=== PATIENT | female | born 1980 | race Caucasian/White ===

== ENCOUNTER 2017-05-13 23:13 | Inpatient (IN) | payer BC, OTHER ==
[~2017-05-13] VITALS: Ht 160 cm; Wt 105.0 kg
[~2017-05-13 23:13] MED LIST: PRENTAB26 PO
[2017-05-13] MEDS ORDERED: LACTATED RINGER'S 1000ML 1,000 ML IV SCH (23:31)
[2017-05-13] MEDS ORDERED: PENICILLIN G POTASSIUM IV 6 MU in DEXTROSE 5% 250ML 250 ML IV ONE (23:45)
[2017-05-13] MEDS ORDERED: PENICILLIN G POTASSIUM IV 3 MU in DEXTROSE 5% 100ML 100 ML IV PRN (23:45)
[2017-05-13] MEDS ORDERED: EpHEDrine SULFATE INJ 50 MG/ML AMP ONE (23:52)
[2017-05-13] MEDS ORDERED: FENTANYL 2MCG/ML ROPIV 1.25MG/ML 100ML BAG EPI ONE (23:52)
[2017-05-13] MEDS ORDERED: BUPIVACAINE 0.25% 30 ML VIAL ONE (23:52)
[2017-05-13] MEDS ORDERED: FENTANYL CITRATE INJ 50 MCG/1 ML 2 ML VIAL ONE (23:52)
[2017-05-14 00:01] LABS: HEMATOCRIT 36.9 % (37-47); MEAN CELL VOLUME 91.6 fL (80-100); MEAN PLATELET VOLUME 9.4 fL (7.4-10.4); PLATELET COUNT 242 K/uL (130-400); RED BLOOD COUNT 4.03 M/uL (4.2-5.4); WHITE BLOOD COUNT 12.62 K/uL (4.8-10.8)
--- NOTE | 2017-05-14 00:26 | HISTORY & PHYSICAL EXAMINATION ---
DATE OF ADMISSION: 05/13/2017 HISTORY OF PRESENT ILLNESS: The patient is a 37-year-old G4, P1-1-1-1, estimated due date is 05/31/2017 making her 37 weeks and 3 days, who presented to labor and delivery. In labor, she was examined by a nurse and found to be 7 cm dilated with bulging membranes. The patient is darin every 2-3 minutes. heart rate is category 1. On arrival to labor and delivery she had no shortness of breath, no chills, no fever. Plan is therefore made to admit patient and anticipate labor. COURSE: Has been complicated by history of advanced maternal age and obesity class 2. LABS: The patient has positive group B strep. PAST MEDICAL HISTORY: The patient had history of abnormal Pap smear of cervix. PAST SURGICAL HISTORY: The patient has history of dental surgery. FAMILY HISTORY: Noncontributory. ALLERGIES: No known drug allergies. 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 The patient delivered a 23 weeks demise in 2009. The patient delivered a live female weighing 7 pounds 7 ounces in 2011. PHYSICAL EXAMINATION: GENERAL: Well-developed, well-nourished white female in labor discomfort. HEART: S1, S2, regular rhythm and rate. LUNGS: Clear to auscultation bilaterally. ABDOMEN: Gravid. PELVIC: 7 cm with bulging membranes. EXTREMITIES: No cyanosis, clubbing or edema. ASSESSMENT AND PLAN: A 37-year-old G4, P1 at 37 weeks and 3. The patient presents in labor. Positive group B strep. Will be treated with antibiotics prophylactically. Plan is to admit patient and anticipate labor.
--- NOTE | 2017-05-14 00:53 | Progress Note ---
Progress Note Date of Service May 14, 2017. Progress Note Pt seen and evaluated H&P done Epidural analgesia placed FHR; CAT1 CAT 1-3mins VE 10/100/ w/ bulging membrane Antibx for GBS #1 Anticipate VD
[2017-05-14] MEDS ORDERED: LACTATED RINGER'S 1000ML 500 ML IV PRN (01:02)
[2017-05-14] MEDS ORDERED: NALOXONE HCL INJ 1 MG in SODIUM CHLORIDE 0.9% 1000ML 1,000 ML IV PRN (01:02)
[2017-05-14] MEDS ORDERED: NALBUPHINE HCL INJ 10 MG/ML AMP IV PRN (01:15)
[2017-05-14] MEDS ORDERED: FENTANYL 2MCG/ML ROPIV 1.25MG/ML 100ML BAG EPI PRN (01:15)
[2017-05-14] MEDS ORDERED: NALOXONE HCL INJ 0.4 MG/1 ML VIAL/CARP IV PRN (01:15)
[2017-05-14] MEDS ORDERED: DiphenhydrAMINE HCL 50 MG/ML VIAL IV PRN (01:15)
[2017-05-14] MEDS ORDERED: EpHEDrine SULFATE INJ 50 MG/ML AMP IV PRN (01:15)
[2017-05-14 02:11] VITALS: Ht 160 cm; Wt 105.0 kg
[2017-05-14] MEDS ORDERED: OXYTOCIN 30 UNITS/500ML NSS IV ONE (04:36)
[2017-05-14] MEDS ORDERED: HYDROCORTISONE ACETATE 25 MG SUPP PR PRN (05:15)
[2017-05-14] MEDS ORDERED: SUPERCREAM 0.870 % 15GM JAR EXT PRN (05:15)
[2017-05-14] MEDS ORDERED: ACETAMINOPHEN/CODEINE 300/30MG TAB PO PRN ×2 (05:15)
[2017-05-14] MEDS ORDERED: LANOLIN OINT EXT PRN ×2 (05:15)
[2017-05-14] MEDS ORDERED: BENZOCAINE 20% AER SPR 82.5 GM CAN EXT PRN (05:15)
[2017-05-14] MEDS ORDERED: ACETAMINOPHEN 325 MG TAB PO PRN (05:15)
[2017-05-14] MEDS ORDERED: OXYTOCIN 30 UNITS/500ML NSS IV PRN (05:15)
[2017-05-14] MEDS ORDERED: OXYCODONE/ACETAMINOPHEN 5-325 TAB PO PRN (05:15)
--- NOTE | 2017-05-14 06:52 | Anesthesia Procedure Note ---
Anesthesia Epidural Removal Nt Date & Time May 14, 2017 at 06:52 Vital Signs Pain Intensity: 0.0 Notes Mental Status: alert / awake / arousable, participated in evaluation Nausea / Vomiting: adequately controlled Pain: adequately controlled Airway Patency, RR, SpO2: stable & adequate BP & HR: stable & adequate Hydration State: stable & adequate Neuraxial Anesthesia: was administered, sensory block is resolving Anesthetic Complications: no major complications apparent, pt satisfied with anesthetic care Epidural: removed without complications, with tip intact
[2017-05-14 07:45] VITALS: BP 113/79; PULSE 91; TEMP 36.8
[2017-05-14] MEDS: PRENATAL VITAMIN TAB PO SCH (07:56)
[2017-05-14] MEDS: FERROUS SULFATE 325 MG TAB PO SCH (07:57)
[2017-05-14] MEDS: DOCUSATE SODIUM 100 MG CAP PO SCH ×2 (07:57→20:00)
[2017-05-14 13:30] VITALS: BP 123/79; PULSE 96; TEMP 36.9
[2017-05-14 16:00] VITALS: BP 125/88; PULSE 88; TEMP 36.9
[2017-05-14 20:05] VITALS: BP 129/81; PULSE 100; TEMP 36.9; O2SAT 98
[2017-05-14] MEDS: IBUPROFEN 600 MG TAB PO PRN (22:23)
[2017-05-14 23:40] VITALS: BP 113/71; PULSE 91; TEMP 36.6; O2SAT 95
[2017-05-15] MEDS: IBUPROFEN 600 MG TAB PO PRN ×2 (05:29→19:32)
[2017-05-15 07:09] VITALS: BP 121/88; PULSE 75; TEMP 36.7; O2SAT 98
--- NOTE | 2017-05-15 07:09 | OPERATIVE REPORT ---
DATE OF OPERATION: 05/14/2017 DELIVERY NOTE The patient delivered a live female in occiput posterior presentation. There was nuchal cord x2, which was easily reduced. Infant was placed on mother's abdomen. Cord clamped after 1 minute. Apgars 8 and 9. A segment of the cord was transected for cord gas. Cord blood was obtained. Placenta was spontaneously delivered. Inspection of the placenta showed grossly normal placenta. Placenta is sent to pathology for pathological analysis. Inspection of the perineum showed a second-degree midline laceration. Laceration is repaired in layers with 2-0 Vicryl. Rectal exam post repair showed good sphincter tone. No sutures are palpated in the rectum. Estimated blood loss is 300 mL. There was good hemostasis. All instruments were removed from the vagina and accounted for x2 including sponges and needles. Baby and mother are stable in recovery. I attest to the content of the Intraoperative Record and any orders documented therein. Any exception s are noted below.
[2017-05-15] MEDS: DOCUSATE SODIUM 100 MG CAP PO SCH ×2 (07:46→19:32)
[2017-05-15] MEDS: PRENATAL VITAMIN TAB PO SCH (07:46)
[2017-05-15] MEDS: FERROUS SULFATE 325 MG TAB PO SCH (07:46)
--- NOTE | 2017-05-15 08:48 | OB/GYN Progress Note ---
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 Subjective conversation w/ patient, physical exam Ambulation: ambulating normally Voiding: no voiding problems Passing Gas: Yes Diet Tolerance: Regular Diet Lochia: Moderate Feeding Type: Bottle Feeding Pain: 2/10 Notes: Doing well, no concerns. Pain well controlled. Tolerating regular diet. Ambulating without difficulty. Lochia decreasing. Objective Vital Signs Date Time Temp Pulse Resp B/P (MAP) Pulse Ox O2 Delivery O2 Flow Rate FiO2 05/15/17 07:50 Room Air 05/15/17 07:09 36.7 75 18 121/88 (99) 98 Room Air 05/14/17 23:40 95 Room Air 05/14/17 23:40 36.6 91 16 113/71 (85) 95 Room Air 05/14/17 20:05 36.9 100 18 129/81 (97) 98 Room Air 05/14/17 16:00 Room Air 05/14/17 16:00 36.9 88 18 125/88 (100) Room Air 05/14/17 13:30 Room Air 05/14/17 13:30 36.9 96 18 123/79 (94) Room Air Physical Exam General Appearance: WELL-APPEARING Respiratory/Chest: chest non-tender, lungs clear Cardiovascular: regular rate, rhythm Abdomen: normal bowel sounds, soft Fundus: Firm Extremities: normal range of motion, non-tender, no calf tenderness Assessment and Plan Post- Day Number: 1 Continue Routine Care: -Continue routine care -Anticipate d/c home tomorrow.
[2017-05-15 15:25] VITALS: BP 117/78; PULSE 101; TEMP 37
[2017-05-15] MEDS ORDERED: BISACODYL 5 MG TABEC PO SCH (20:00)
[2017-05-15 23:25] VITALS: BP 112/72; PULSE 77; TEMP 36.7
[2017-05-16 06:57] LABS: HEMATOCRIT 38.7 % (37-47); MEAN CELL VOLUME 95.3 fL (80-100); MEAN CORPUSCULAR HGB CONC 33.6 g/dl (32-36); MEAN PLATELET VOLUME 9.2 fL (7.4-10.4); PLATELET COUNT 212 K/uL (130-400); RED BLOOD COUNT 4.06 M/uL (4.2-5.4)
[2017-05-16] MEDS ORDERED: BISACODYL 10 MG SUPP PR PRN (07:00)
[2017-05-16 07:30] VITALS: BP 118/78; PULSE 77; TEMP 36.8; O2SAT 98
[2017-05-16] MEDS: DOCUSATE SODIUM 100 MG CAP PO SCH (07:41)
[2017-05-16] MEDS: FERROUS SULFATE 325 MG TAB PO SCH (07:41)
[2017-05-16] MEDS: PRENATAL VITAMIN TAB PO SCH (07:41)
[2017-05-16] MEDS: IBUPROFEN 600 MG TAB PO PRN (07:42)
--- NOTE | 2017-05-16 07:55 | OB/GYN Progress Note ---
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 Subjective conversation w/ patient, physical exam Ambulation: ambulating normally Voiding: no voiding problems Passing Gas: Yes Diet Tolerance: Regular Diet Lochia: Moderate Feeding Type: Breast Feeding Review of Systems Constitutional: No fever, No chills, No sweats, No weight loss, No weakness, No fatigue, No problem reported Respiratory: No cough, No sputum, No wheezing, No shortness of breath, No dyspnea on exertion, No dyspnea at rest, No hemoptysis, No problem reported Cardiac: No chest pain, No orthopnea, No PND, No edema, No claudication, No palpitations, No problem reported Breast: No see HPI, No breast lump, No change in shape, No nipple discharge, No breast pain, No problem reported Abdomen: No pain, No nausea, No vomiting, No diarrhea, No constipation, No GI bleeding, No problem reported Female : No see HPI, No dysuria, No urinary frequency, No hematuria, No incontinence, No abnormal vaginal bleeding, No vaginal discharge, No problem reported Objective Vital Signs Date Time Temp Pulse Resp B/P (MAP) Pulse Ox O2 Delivery O2 Flow Rate FiO2 05/15/17 23:25 Room Air 05/15/17 23:25 36.7 77 18 112/72 (85) Room Air 05/15/17 15:25 37.0 101 18 117/78 (91) Room Air 05/15/17 15:25 Room Air Physical Exam General Appearance: WELL-APPEARING, WD/WN, NO APPARENT DISTRESS, uncomfortable Respiratory/Chest: chest non-tender, lungs clear, normal breath sounds, no respiratory distress, no accessory muscle use Cardiovascular: regular rate, rhythm, no edema, no gallop, no JVD, no murmur Abdomen: normal bowel sounds, non tender, soft, no organomegaly, no pulsatile mass Fundus: Firm Extremities: normal range of motion, non-tender, normal inspection, no pedal edema, no calf tenderness Laboratory Results Last 24 Hours Test 05/16/17 06:40 White Blood Count 11.20 K/uL Red Blood Count 4.06 M/uL Hemoglobin 13.0 g/dL Hematocrit 38.7 % Mean Corpuscular Volume 95.3 fL Mean Corpuscular Hemoglobin 32.0 pg Mean Corpuscular Hemoglobin Concent 33.6 g/dl RDW Standard Deviation 47.7 fL RDW Coefficient of Variation 13.9 % Platelet Count 212 K/uL Mean Platelet Volume 9.2 fL Assessment and Plan Post- Day Number: 2 Continue Routine Care: day #2 Pt doing well disch home with instructions
[2017-05-16] MEDS ORDERED: MTR600X PO (07:56)
--- NOTE | 2017-05-16 07:57 | Discharge Instructions ---
Discharge Instructions Date of Service May 16, 2017. Admission Reason for Admission: Check Labor Discharge Discharge Diagnosis / Problem: Discharge Goals Goal(s): Routine recovery after delivery Activity Recommendations Activity Limitations: as noted below ACTIVITY RECOMMENDATIONS: * Gradual return to full activity over the next 2-3 weeks. * No lifting - nothing heavier than baby over the next 2-3 weeks. * Do not engage in vigorous exercise, sexual activity or sports until cleared by your physician. * Do not drive or operate any motorized equipment until cleared by your physician. * You may shower/bathe daily. BREAST CARE: If you are not breast feeding: * Wear a supportive bra 24 hours a day for one to two weeks. * Avoid stimulating your breasts and nipples as much as possible during the first few weeks after delivery. * When taking a shower, have the warm water hit your back, not breasts. * When your breasts feel full, apply ice packs. Usually three to four times a day helps ease the discomfort. * Take a mild pain medication (Tylenol/Motrin) when you are uncomfortable. If breast feeding: * Use breast milk to lubricate nipples. Lansinoh cream may be used for sore nipples. You do not need to remove cream prior to breast feeding. If using a different brand of cream, check the label for directions regarding removal of cream prior to nursing. * Wear a supportive bra. * If having problems with breasts or breast feeding, call a bridal stylist sales consultant or your health care provider. EPISIOTOMY CARE: After delivery, if you have an episiotomy (stitches), the following steps will ease discomfort and aid healing. * For the first 24 hours after delivery, place ice packs next to your episiotomy to help reduce swelling. * After the first 24 hour-period, sitz baths, either portable or in the tub, are suggested. A shower with a shower arm sprayed over the episiotomy may be comforting. * Priya care should be done after each voiding and bowel movement. Squirt warm water from a plastic bottle over the perineum (region of the body between the anus and urinary opening) and pat dry. * Use Dermoplast to ease discomfort. Shake container. [place] directly over the episiotomy. * Place a Tucks on a clean sanitary pad next to your episiotomy. OVER THE COUNTER MEDICATION: * For discomfort or pain, you may use Acetaminophen (Tylenol), Ibuprofen (Advil ), or Naproxen (Aleve) following the package directions. * For constipation you may use Colace following the package directions. SPECIAL CARE INSTRUCTIONS: When you are discharged from the hospital, it is important for you to follow the instructions listed below: * During the first week at home, you should be able to care for yourself and your baby. In addition, the usual light household activities are encouraged. * Limit your activities to the way you feel. Do not try to clean the house or move furniture. Be sensible. * If you actively engage in sports and have done so up until the time of your delivery, you may resume these activities as soon as you feel able. This may take up to one month or even longer. Use good judgment. * Continue to take your vitamins for at least six weeks after the of your baby. * Your diet need not be limited unless you were on a special diet before your delivery. Breast-feeding mothers need around 2500 calories per day and at least 64-80 ounces of fluid per day (8 to 10 glasses). * You should eat foods from the four major food groups. Crash diets or fad diets are to be avoided. Eating lean meats, fresh fruits and vegetables, low-fat dairy products, high fiber foods and a regular exercise program, will help you get back to your pre- weight without putting your health at risk. * Constipation is sometimes a problem after delivery. Take a mild laxative as needed. If breast feeding, Milk of Magnesia is acceptable to use. You may use a suppository or Fleets enema if no episiotomy. * A daily shower or tub bath is suggested. Be sure to thoroughly and gently dry the perineum. * A bloody vaginal discharge will usually continue until around four weeks post . A small amount of bleeding may continue for as long as six weeks. Vaginal discharge changes from the bright red bleeding after delivery to pink then brownish and finally yellowish-pink before becoming white and disappearing. * Bleeding may increase with activity. Your first period may come in 4-8 weeks. If you are breast feeding, your period may be delayed even longer. * [place] (sex) can begin whenever both you and your partner feel comfortable and do not have any form of genital infection. It is recommended that you wait until after your return appointment and discuss with your physician. If you have questions, please talk to your health care practitioner. A condom should be used to prevent infection and . * Foreplay, gentle intercourse and lubrication is very important the first several times to prevent pain. A water-based lubricant such as K-Y jelly or Astroglide may be used. * Tampons may be used six weeks after delivery. * Douching should be avoided for 6 weeks after delivery. * If you have RH negative blood and your baby is RH positive, you will receive RHOGAM by injection prior to discharge. The nurse will give you a card to keep with you that has the date and place that you received RHOGAM after delivery. * During your care, you had a Rubella screen done to check for the presence of rubella antibodies in your blood. If your test was negative, you will receive a Rubella vaccine prior to discharge. This vaccine may cause a fever, soreness at the injection site and flu-like symptoms. If these symptoms persist, notify your health care practitioner. is not advised for three months after a Rubella vaccine. There is a higher chance of having a baby with defects if conceived within three months of getting the vaccine. * If you were discharged 24 hours from delivery or before 48 hours: Visiting nurses will come to your home 48 hours after discharge to assess you and your baby. The visiting nurse will meet with you while you are in the hospital to arrange a time and get directions to your home. * Verbalizes understanding of car seat law as reviewed with patient nursing. * Car Seat hand-out given and reviewed with patient by nursing. * Shaken baby information reviewed with patient by nursing. Call you doctor if: * Heavy bleeding (saturating several pads an hour) or passing clots the size of your fist. * A fever >101 degrees F (38.3 degrees C) on two occasions four hours apart and/or chills. * Unusual pain in the pelvic or vaginal areas. * "Baby Blues" lasting longer than two weeks. If you have any questions or concerns, call your health care practitioner at . FOLLOW-UP VISIT: * Please call the office at to schedule a 6 week examination. It is important you keep this appointment. * It is important for you to make arrangements for either yearly or twice yearly check-ups thereafter. . Current Hospital Diet Patient's current hospital diet: Regular Diet Discharge Diet Recommended Diet: Regular Diet Pending Studies Studies pending at discharge: no Medical Emergencies . Who to Call and When: Medical Emergencies: If at any time you feel your situation is an emergency, please call 911 immediately. . Non-Emergent Contact Non-Emergency issues call your: Specialist . . "Provider Documentation" section prepared by Jesus Alfonso. . VTE Core Measure Inpt VTE Proph given/why not?: Treatment not indicated
[2017-05-16 10:30] VITALS: BP_DIAS 78; PULSE 77; TEMP 36.8
== END 2017-05-16 10:30 | disposition home or self-care (01) | DRG 775 ==
LOC: C.LD 23:13 → C.OPB 23:13 → C.LD 23:33 → C.OBG 05-14 08:02
PROVIDERS: ADMIT Obstetrics & Gynecology; ATTEND Obstetrics & Gynecology
PROC: 0KQM0ZZ Repair Perineum Muscle, Open Approach (ICD-10-PCS; principal; 2017-05-14)
PROC: 10E0XZZ Delivery of Products of Conception, External Approach (ICD-10-PCS; principal; 2017-05-14)
DX: O99.214 Obesity complicating childbirth (principal); Z68.41 Body mass index [BMI] 40.0-44.9, adult; O09.523 Supervision of elderly multigravida, third trimester; O70.1 Second degree perineal laceration during delivery; O69.81X0 Labor and delivery complicated by cord around neck, without compression, not applicable or unspecified; E66.9 Obesity, unspecified; Z3A.37 37 weeks gestation of pregnancy; Z22.330 Carrier of Group B streptococcus; Z37.0 Single live birth